=== PATIENT | male | born 2000 | race Caucasian/White ===

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

== ENCOUNTER 2020-09-10 21:13 | Emergency (ER) | payer OTHER ==
[~2020-09-10] VITALS: Ht 175.2 cm; Wt 70.3 kg
[2020-09-10 21:33] VITALS: BP 131/64
== END 2020-09-11 01:17 | disposition home or self-care (01) ==
LOC: ED 21:13
DX: Z01.84 Encounter for antibody response examination (principal); Z79.899 Other long term (current) drug therapy

== ENCOUNTER 2020-10-12 13:16 | Emergency (ER) | payer OTHER ==
[~2020-10-12] VITALS: Wt 70.3 kg
[2020-10-12 13:21] VITALS: BP 113/86
== END 2020-10-12 14:46 | disposition home or self-care (01) ==
LOC: ED 13:16
DX: S60.042A Contusion of left ring finger without damage to nail, initial encounter (principal); Z79.899 Other long term (current) drug therapy; Z79.2 Long term (current) use of antibiotics; Z90.89 Acquired absence of other organs; W31.89XA Contact with other specified machinery, initial encounter; Y93.89 Activity, other specified; Y92.69 Other specified industrial and construction area as the place of occurrence of the external cause; Y99.0 Civilian activity done for income or pay

== ENCOUNTER 2020-10-15 21:55 | Emergency (ER) | payer OTHER ==
[~2020-10-15] VITALS: Ht 175.2 cm; Wt 70.3 kg
[2020-10-15 22:05] VITALS: BP 127/61
[2020-10-16] MEDS ORDERED: CYCLOBENZAPRINE10 MG PO (01:17)
[2020-10-16] MEDS ORDERED: NAPROSYN500 MG PO (01:17)
== END 2020-10-16 01:44 | disposition home or self-care (01) ==
LOC: ED 21:55
DX: M62.830 Muscle spasm of back (principal); G58.8 Other specified mononeuropathies; M54.6 Pain in thoracic spine; Z90.89 Acquired absence of other organs; X50.0XXA Overexertion from strenuous movement or load, initial encounter; Y93.89 Activity, other specified; Y92.89 Other specified places as the place of occurrence of the external cause; Y99.8 Other external cause status

== ENCOUNTER 2021-03-15 15:08 | Emergency (ER) | payer OTHER ==
[~2021-03-15] VITALS: Ht 175.2 cm; Wt 74.8 kg
[~2021-03-15 15:08] MED LIST changes: +CYCLOBENZAPRINE10 MG PO
[2021-03-15 15:34] VITALS: BP 127/83
== END 2021-03-15 19:47 | disposition home or self-care (01) ==
LOC: ED 15:08
DX: Z13.89 Encounter for screening for other disorder (principal); R00.2 Palpitations

== ENCOUNTER 2021-06-05 20:31 | Emergency (ER) | payer OTHER ==
[2021-06-05 20:45] VITALS: BP 133/67
== END 2021-06-05 21:42 | disposition home or self-care (01) ==
LOC: ED 20:31
DX: S80.11XA Contusion of right lower leg, initial encounter (principal); Z90.89 Acquired absence of other organs; W22.8XXA Striking against or struck by other objects, initial encounter; Y93.89 Activity, other specified; Y92.89 Other specified places as the place of occurrence of the external cause; Y99.8 Other external cause status

== ENCOUNTER → 2021-08-21 | Outpatient (CLI) | payer OTHER | LOC: COVID19 12:29 | PROVIDERS: ATTEND Internal Medicine | DX: Z20.822 Contact with and (suspected) exposure to COVID-19 (principal) ==

== ENCOUNTER 2021-09-03 21:59 | Emergency (ER) | payer OTHER ==
[~2021-09-03] VITALS: Ht 177.8 cm; Wt 86.2 kg
[2021-09-03 22:08] VITALS: BP 121/73
== END 2021-09-04 00:13 | disposition home or self-care (01) ==
LOC: ED 21:59
DX: B34.9 Viral infection, unspecified (principal); Z20.822 Contact with and (suspected) exposure to COVID-19

== ENCOUNTER 2021-11-06 08:28 | Emergency (ER) | payer OTHER ==
[~2021-11-06] VITALS: Ht 172.7 cm; Wt 77.1 kg
[2021-11-06 10:05] VITALS: BP 129/83
== END 2021-11-06 12:11 | disposition left against medical advice (07) ==
LOC: ED 08:28
DX: R51.9 Headache, unspecified (principal); Z53.21 Procedure and treatment not carried out due to patient leaving prior to being seen by health care provider

== ENCOUNTER 2021-11-06 21:13 | Emergency (ER) | payer OTHER ==
[~2021-11-06] VITALS: Ht 177.8 cm; Wt 77.1 kg
[2021-11-06 21:13] VITALS: BP 142/80
== END 2021-11-06 23:48 | disposition home or self-care (01) ==
LOC: ED 21:13
DX: R51.9 Headache, unspecified (principal); Z20.822 Contact with and (suspected) exposure to COVID-19; J02.9 Acute pharyngitis, unspecified; R09.89 Other specified symptoms and signs involving the circulatory and respiratory systems; Z90.89 Acquired absence of other organs

== ENCOUNTER 2022-11-09 23:41 | Emergency (ER) | payer OTHER ==
[~2022-11-09] VITALS: Wt 79.4 kg
[2022-11-10 00:14] VITALS: BP 137/84
[2022-11-10 00:57] LABS: BASO # 0.1 10*3/uL (0.0-0.1); BASO % 0.9 % (0.0-1.0); EOS # 0.6 10*3/uL (0.0-0.4); EOS % 9.1 % (1.0-4.0); HEMATOCRIT 40.7 % (42.0-52.0); LYMPH # 2.5 10*3/uL (1.3-4.4); LYMPH % 36.7 % (27.0-41.0); MEAN CORPUSCULAR HGB 28.5 pg (27.0-31.0); MEAN CORPUSCULAR HGB CONC 33.2 g/dl (33.0-37.0); MEAN PLATELET VOLUME 11.5 fl (9.6-12.3); MONO # 0.6 10*3/uL (0.1-1.0); MONO % 9.4 % (3.0-9.0); NEUT # 2.9 10*3/uL (2.3-7.9); NEUT % 43.5 % (47.0-73.0); PLATELET COUNT AUTOMATED 177 10*3/uL (130-400); RED BLOOD COUNT 4.73 10*6/uL (4.50-5.90); RED CELL DISTRI WIDTH 12.2 % (0-14.5); WHITE BLOOD COUNT 6.7 10*3/uL (4.8-10.8)
[2022-11-10 01:11] LABS: ACT PARTIAL THROMBO TIME 29.1 SECONDS (20.0-32.1); INTERNATIONAL NORM RATIO 1.1 (2.0-3.5)
[2022-11-10 01:20] LABS: ALKALINE PHOSPHATASE 94 U/L (46-116); BUN < 5 mg/dl (9-23); CHLORIDE 106 mmol/L (98-107); LIPASE 42 U/L (12-53); SGPT/ALT 23 U/L (10-49); TOTAL PROTEIN 7.2 gm/dL (6.0-8.0)
[2022-11-10] MEDS ORDERED: VENTOLIN 02.5 MG/3 M INH (02:42)
== END 2022-11-10 02:46 | disposition home or self-care (01) ==
LOC: ED 23:41
PROVIDERS: Internal Medicine
DX: J45.901 Unspecified asthma with (acute) exacerbation (principal); Z20.822 Contact with and (suspected) exposure to COVID-19; Z90.89 Acquired absence of other organs

== ENCOUNTER 2023-01-11 10:16 | Emergency (ER) | payer OTHER ==
[~2023-01-11] VITALS: Ht 180.3 cm; Wt 77.1 kg
[~2023-01-11 10:16] MED LIST changes: +VENTOLIN 02.5 MG/3 M INH
[2023-01-11 10:34] VITALS: BP 135/96
[2023-01-11] MEDS ORDERED: PENICILLIN VK500 MG PO (10:59)
== END 2023-01-11 11:01 | disposition home or self-care (01) ==
LOC: ED 10:16
DX: K02.9 Dental caries, unspecified (principal); K08.89 Other specified disorders of teeth and supporting structures; J45.909 Unspecified asthma, uncomplicated; F41.9 Anxiety disorder, unspecified; Z86.16 Personal history of COVID-19; Z90.89 Acquired absence of other organs; Z98.890 Other specified postprocedural states

== ENCOUNTER 2023-06-18 19:14 | Emergency (ER) | payer OTHER ==
[~2023-06-18] VITALS: Ht 177.8 cm; Wt 77.1 kg
[~2023-06-18 19:14] MED LIST changes: +PENICILLIN VK500 MG PO
[2023-06-18 19:32] VITALS: BP 128/76
[2023-06-18] MEDS ORDERED: IOHEXOL 300 MG/ML 100 ML VIAL IV ONE (19:50)
[2023-06-18 19:56] LABS: BASO # 0.1 10*3/uL (0.0-0.1); EOS # 0.5 10*3/uL (0.0-0.4); EOS % 7.9 % (1.0-4.0); HEMATOCRIT 40.4 % (42.0-52.0); LYMPH # 1.7 10*3/uL (1.3-4.4); MEAN CELL VOLUME 83.6 fl (80.0-94.0); MEAN CORPUSCULAR HGB 28.2 pg (27.0-31.0); MEAN CORPUSCULAR HGB CONC 33.7 g/dl (33.0-37.0); MEAN PLATELET VOLUME 10.9 fl (9.6-12.3); MONO # 0.5 10*3/uL (0.1-1.0); MONO % 9.1 % (3.0-9.0); NEUT # 3.2 10*3/uL (2.3-7.9); NEUT % 53.8 % (47.0-73.0); PLATELET COUNT AUTOMATED 215 10*3/uL (130-400); RED BLOOD COUNT 4.83 10*6/uL (4.50-5.90); RED CELL DISTRI WIDTH 11.9 % (0-14.5)
[2023-06-18 20:06] LABS: BILIRUBIN Negative (Negative); BLOOD Negative (Negative); CLARITY Clear (Clear); COLOR Yellow (Yellow); GLUCOSE Negative (Negative); KETONE Negative (Negative); LEUKO ESTERASE Negative (Negative); NITRITE Negative (Negative); SPECIFIC GRAVITY <= 1.005 (1.001-1.030); UROBILINOGEN 0.2 E.U./dl (0.0-1.0)
[2023-06-18 20:17] LABS: ALKALINE PHOSPHATASE 107 U/L (46-116); BUN 8 mg/dl (9-23); CHLORIDE 105 mmol/L (98-107); LIPASE 52 U/L (12-53); POTASSIUM 3.5 mmol/L (3.4-5.1); SGPT/ALT 20 U/L (5-49); TOTAL PROTEIN 7.5 gm/dL (6.0-8.0)
[2023-06-18 20:24] LABS: EPITHELIAL CELLS 0-2; WBC 0-2 wbc/hpf (0-5)
== END 2023-06-18 23:12 | disposition home or self-care (01) ==
LOC: ED 19:14
PROVIDERS: Nurse Practitioner
DX: R16.1 Splenomegaly, not elsewhere classified (principal); J45.909 Unspecified asthma, uncomplicated; F41.9 Anxiety disorder, unspecified; Z88.8 Allergy status to other drugs, medicaments and biological substances; Z90.89 Acquired absence of other organs; Z98.890 Other specified postprocedural states

== ENCOUNTER 2023-08-31 00:27 | Emergency (ER) | payer OTHER ==
[~2023-08-31] VITALS: Ht 177.8 cm; Wt 77.1 kg
[2023-08-31 00:32] VITALS: BP 118/74
[2023-08-31] MEDS ORDERED: PANTOPRAZOLE SO40 MG PO (00:40)
== END 2023-08-31 01:17 | disposition home or self-care (01) ==
LOC: ED 00:27
DX: R19.7 Diarrhea, unspecified (principal); R14.1 Gas pain; J45.909 Unspecified asthma, uncomplicated; F41.9 Anxiety disorder, unspecified; Z88.8 Allergy status to other drugs, medicaments and biological substances; Z90.89 Acquired absence of other organs; Z98.890 Other specified postprocedural states

== ENCOUNTER 2024-01-07 15:58 | Emergency (ER) | payer OTHER ==
[~2024-01-07] VITALS: Ht 177.8 cm; Wt 79.4 kg
[~2024-01-07 15:58] MED LIST changes: +PANTOPRAZOLE SO40 MG PO
[2024-01-07 16:39] VITALS: BP 128/89
[2024-01-07] MEDS ORDERED: AVPAK AZITHROM250 MG PO (19:23)
== END 2024-01-07 19:34 | disposition home or self-care (01) ==
LOC: ED 15:58
DX: J45.909 Unspecified asthma, uncomplicated (principal); F41.9 Anxiety disorder, unspecified; F17.290 Nicotine dependence, other tobacco product, uncomplicated; Z88.8 Allergy status to other drugs, medicaments and biological substances; Z90.89 Acquired absence of other organs

== ENCOUNTER 2024-01-29 12:13 | Emergency (ER) | payer OTHER ==
[~2024-01-29] VITALS: Wt 79.4 kg
[~2024-01-29 12:13] MED LIST changes: +AVPAK AZITHROM250 MG PO
[2024-01-29 12:29] VITALS: BP 136/87
[2024-01-29] MEDS ORDERED: MELOXICAM15 MG PO (12:39)
[2024-01-29] MEDS ORDERED: AMOX-CLAV 875-1 EACH PO (12:39)
[2024-01-29] MEDS ORDERED: Amoxicillin/Clavulanate Pota 875 MG TAB PO ONE (12:40)
[2024-01-29] MEDS ORDERED: Acetaminophen/Oxycodone 5 MG/325 MG TABLET PO ONE (12:40)
== END 2024-01-29 12:49 | disposition home or self-care (01) ==
LOC: ED 12:13
DX: K04.7 Periapical abscess without sinus (principal); J45.909 Unspecified asthma, uncomplicated; Z91.041 Radiographic dye allergy status; Z90.89 Acquired absence of other organs